=== PATIENT | female | born 1955 | race Caucasian/White ===

== ENCOUNTER 2018-01-07 17:11 | Emergency (ER) | payer OTHER ==
[~2018-01-07] VITALS: Ht 160 cm; Wt 80.0 kg
[~2018-01-07 17:11] MED LIST: Z.0.NO CURRENT MEDS
[2018-01-07 17:17] VITALS: BP 149/82; PULSE 78; RESP 16; TEMP 98.1; O2SAT 96
[2018-01-07] MEDS ORDERED: MECLIZINE HCL 25 MG TAB PO ONE (17:45)
[2018-01-07] MEDS ORDERED: ONDANSETRON ODT 4 MG TAB PO ONE (18:00)
--- NOTE | 2018-01-07 18:13 | PD ---
HPI Chief Complaint: Dizziness Time Seen by Provider: 17:35 Travel History International Travel<30 days: No Contact w/Intl Traveler<30days: No Traveled to known affect area: No History of Present Illness HPI 62yo F with PMH of vertigo presents to the ED with c/o right ear fullness for 1 week. Said she has not been able to hear out of right ear and feel like there' s fluid inside. Has been having episodes of nausea, vomiting, and room spinning as well as tinnitus. Follows with ENT Dr. Manrique. Denies any chest pain, sob, abdominal pain, focal weakness or numbness. PFSH Past Medical History Blood Disorders: No Heart Rhythm Problems: No Cancer: Yes (father) Cardiac Catheterization: Yes Cardiovascular Problems: Yes (CARDIAC CATH) High Cholesterol: No Chest Pain: No Congestive Heart Failure: No Diminished Hearing: No Diverticulitis: Yes Endocrine: No Gastrointestinal Disorders: Yes (abcess on colon) Genitourinary: No Hypertension: No Immune Disorder: No Musculoskeletal: No Neurologic: No Psychiatric: No Reproductive: No Respiratory: No Tetanus Vaccination: < 5 Years Influenza Vaccination: No ?: Not Menopausal: No Past Surgical History AICD: No Gynecologic Surgery: Yes (GISELLE) Hysterectomy: Yes Pacemaker: No Other Surgery: Yes Family History Family Hypercholesterolemia: Yes (mother) Social History Alcohol Use: No Tobacco Use: No Substance Use: No Allergies-Medications (Allergen,Severity, Reaction): Coded Allergies: diatrizoate meglumine (Unverified Allergy, Severe, uncontrollable neuromuscular contraction, 01/07/18) gadobenic acid (Unverified Allergy, Severe, uncontrollable neuromuscular contraction, 01/07/18) gadodiamide (Unverified Allergy, Severe, uncontrollable neuromuscular contraction, 01/07/18) gadoteridol (Unverified Allergy, Severe, uncontrollable neuromuscular contraction, 01/07/18) iodixanol (Unverified Allergy, Severe, uncontrollable neuromuscular contraction, 01/07/18) iohexol (Unverified Allergy, Severe, uncontrollable neuromuscular contraction, 01/07/18) penicillin G (Unverified Allergy, Severe, Anaphylaxis, 01/07/18) Reported Meds & Prescriptions Reported Meds & Active Scripts Active Meclizine (Meclizine HCl) 25 Mg Tab 25 Mg PO TID PRN Review of Systems Except as stated in HPI: all other systems reviewed are Neg Physical Exam Narrative GENERAL: 62yo F in mild distress. SKIN: Focused skin assessment warm/dry. HEAD: Atraumatic. Normocephalic. EYES: Pupils equal and round. No scleral icterus. No injection or drainage. No nystagmus. ENT: Right ear: +Cerumen impaction. Left ear: TM wnl. NECK: Trachea midline. No JVD. CARDIOVASCULAR: Regular rate and rhythm. No murmur appreciated. RESPIRATORY: No accessory muscle use. Clear to auscultation. Breath sounds equal bilaterally. GASTROINTESTINAL: Abdomen soft, non-tender, nondistended. No rebound tenderness or guarding. MUSCULOSKELETAL: No obvious deformities. No clubbing. No cyanosis. No edema. NEUROLOGICAL: Awake and alert. No obvious cranial nerve deficits. Motor grossly within normal limits in all extremities. Sensation intact. Normal speech. PSYCHIATRIC: Appropriate mood and affect; insight and judgment normal. Data Data Last Documented VS Vital Signs Date Time Temp Pulse Resp B/P (MAP) Pulse Ox O2 Delivery O2 Flow Rate FiO2 01/07/18 17:29 Room Air 01/07/18 17:17 98.1 78 16 149/82 (104) 96 Orders Orders Meclizine (Antivert) (01/07/18 17:45) Ondansetron Odt (Zofran Odt) (01/07/18 18:00) [facility] Medical Decision Making Medical Screen Exam Complete: Yes Emergency Medical Condition: Yes Differential Diagnosis Peripheral vertigo vs. myringitis vs. otitis media Narrative Course 62yo F with right ear fullness, mild pain, tinnitus, nausea and vomiting. Pt given meclizine and zofran. Pt's right ear was irrigated with warm water and peroxide. Pt reevaluated at bedside and right TM is nonerythematous but does have some fluid behind the TM. Pt feels better and wants to go home. Requesting antibiotics prescription as a wait and see approach. Pt has penicillin allergy so will give azithromycin. Return precautions given. Diagnosis Primary Impression: Vertigo Patient Instructions: General Instructions Departure Forms: Tests/Procedures Additional Instructions: Please follow up with your ENT as outpatient. Return to the ED if symptoms worsen. Med/Other Pt SpecificInfo: Prescription(s) given Scripts Azithromycin (Zithromax Z-Leopoldo) 250 Mg Dspk 250 MG PO DIRECTED for Infection, #1 DSPK 0 Refills 500 MG (2 tabs) day 1, then 1 tab days 2-5. Prov: Sondra Jack DO 01/07/18 Meclizine (Meclizine) 25 Mg Tab 25 MG PO TID Y for VERTIGO, #10 TAB 0 Refills Prov: Sondra Jack DO 01/07/18 Disposition: 01 DISCHARGE HOME Condition: Stable Sondra Jack DO Jan 07, 2018 18:13
[2018-01-07] MEDS ORDERED: MECL-62 PO (18:48)
[2018-01-07] MEDS ORDERED: ZITHTAB PO (18:50)
== END 2018-01-07 19:06 | disposition home or self-care (01) ==
LOC: PHED 17:11
DX: R42 Dizziness and giddiness (principal)
CPT/HCPCS: 99283